=== PATIENT | male | born 1945 | race Caucasian/White ===

== ENCOUNTER 2020-09-24 16:23 | Outpatient (REF) | payer SELFPAY | END 2020-09-24 16:24 | disposition home or self-care (01) | LOC: HO.LAB 16:23 | PROVIDERS: Visit Provider Internal Medicine | DX: Z20.828 Contact with and (suspected) exposure to other viral communicable diseases (principal) | CPT/HCPCS: C9803; U0003 ==

== ENCOUNTER 2024-12-03 11:32 | Inpatient (IN) | payer OTHER, SELFPAY ==
[2024-12-03] VITALS (13 sets, daily range): BP systolic 89–112; BP diastolic 48–82; PULSE 82–122; RESP 16–36; TEMP 36.8–37.4; O2SAT 86–97; BMI 21.8
--- NOTE | ~2024-12-03 | XR_ITS ---
CLINICAL HISTORY: inf A , cough 1 view chest x-ray Comparison: None Findings: The lungs are clear. Heart size is normal. No acute fracture. IMPRESSION: 1. No acute findings. This document has been electronically signed by: Cari Duval MD on 12/03/2024 14:18:59
--- NOTE | 2024-12-03 12:07 | ED.NAVMDI ---
HPI - Nausea/Vomiting/Diarrhea General Chief complaint: Nausea/Vomiting/Diarrhea Stated complaint: WEAK,FEVER,DIARRHEA X4D PER EMS Time Seen by Provider: 12/03/24 11:43 Source: patient Mode of arrival: ambulatory Limitations: no limitations History of Present Illness ED Provider: HPI Narrative: Patient otherwise healthy other family member sick with influenza a with nausea vomiting diarrhea patient comes here for 4 days of nausea vomiting diarrhea unable to eat or drink much at home had low-grade fever with cough and congestion was saturating 91% at room air patient has had multiple episodes of vomiting diarrhea more than 10 times a day no recent travel or use of antibiotics Related Data Home Medications ?Medication ?Instructions ?Recorded ?Confirmed acetaminophen 500 mg tablet 1,000 mg PO Q6H PRN pain 12/03/24 12/03/24 atorvastatin 80 mg tablet 80 mg PO DAILY 12/03/24 12/03/24 clopidogrel 75 mg tablet 75 mg PO DAILY 12/03/24 12/03/24 famotidine 10 mg tablet (Heartburn 10 mg PO DAILY PRN Heartburn 12/03/24 12/03/24 Relief (famotidine)) gabapentin 400 mg capsule 400 mg PO BEDTIME 12/03/24 12/03/24 lorazepam 0.5 mg tablet 0.5 mg PO BID PRN Anxiety 12/03/24 12/03/24 mirtazapine 45 mg tablet 45 mg PO BEDTIME 12/03/24 12/03/24 trazodone 50 mg tablet 50 mg PO DAILY PRN Insomnia 12/03/24 12/03/24 Allergies Allergy/AdvReac Type Severity Reaction Status Date / Time No Known Allergies Allergy Verified 12/03/24 11:57 Review of Systems Review of Systems: Yes all other systems are reviewed and are negative [facility] Past Medical History Medical History Anxiety HLD (hyperlipidemia) Social History Social History Smoked in Last 30 Days: No Use of substances other than those prescribed or required for medical reasons: Yes Substance Use Type: Marijuana Advance Directives: No Advance Directives Information Provided: Yes Do you have a plan to hurt others: No Plan Physical Exam Vital Signs: Vital Signs: Last Vital Signs Temp 99.4 F 12/03/24 19: Pulse 91 12/03/24 19:26 Resp 29 H 12/03/24 19: BP 99/63 12/03/24 19: Pulse Ox 95 12/03/24 19: O2 Del Method Nasal Cannula 12/03/24 19: O2 Flow Rate 2 12/03/24 19:26 BMI result Body Mass Index 21.8 Appearance: Alert. Oriented X3. No acute distress. Eyes: No pallor or icterus ENT: Pharynx normal. Oral Mucosa dry Neck: Normal inspection. Neck supple. CVS: Normal heart rate and rhythm. Pulses normal. Respiratory: No respiratory distress. Equal air entry bilateral, no wheezing/rales/rhonchi Abdomen: Soft and nontender. Bowel sounds are present, no mass palpable, no CVA tenderness Skin: Skin warm and dry. Normal skin color. Normal skin turgor. Extremities: No lower extremity edema. No calf tenderness Neuro: Oriented X 3. No motor deficit. Medications Administered Generic Name Dose Route Start Last Admin Trade Name Freq PRN Reason Stop Dose Admin Benzonatate 100 mg 12/03/24 18:04 12/03/24 18:36 Benzonatate 100 Mg Capsule PO 100 mg TID PRN Administration Cough Lactated Ringer's 1,000 mls @ 100 mls/hr 12/03/24 18:15 12/03/24 18:29 Lr IVCONT 100 mls/hr .Q10H NAYELI Administration Oseltamivir Phosphate 75 mg 12/03/24 18:00 12/03/24 18:29 Oseltamivir Phosphate 75 Mg Capsule PO 12/07/24 18:01 75 mg Q24H NAYELI Administration Discontinued Medications Generic Name Dose Route Start Last Admin Trade Name Freq PRN Reason Stop Dose Admin Albuterol Sulfate 2.5 mg/ 0 mg 12/03/24 16:24 12/03/24 16:32 Albuterol/Ipratropium 3 ml INHALE 12/03/24 16:25 1 dose ONCE ONE Administration Sodium Chloride 1,000 mls @ 999 mls/hr 12/03/24 12:13 12/03/24 13:16 Ns IV 12/03/24 13:13 Infused .Q1H1M ONE Infusion Sodium Chloride 1,000 mls @ 999 mls/hr 12/03/24 13:29 12/03/24 14:42 Ns IV 12/03/24 14:29 Infused .Q1H1M ONE Infusion Loperamide HCl 2 mg 12/03/24 18:04 12/03/24 18:29 Loperamide Hcl 2 Mg Capsule PO 12/03/24 18:05 2 mg ONCE ONE Administration Ondansetron HCl 4 mg 12/03/24 12:13 12/03/24 12:15 Ondansetron Hcl 4 Mg/2 Ml Vial IVPUSH 12/03/24 12:14 4 mg ONCE ONE Administration Medical Decision Making Medical Decision Making [facility] Narrative: Patient's with acute gastroenteritis with influenza a positive treat symptomatically patient is saturating 89% at room air on received IV fluids taking p.o. fluids but still feels short of breath chest x-ray negative received DuoNeb treatment will re-evaluate Patient's desaturating to 87% at room air will admit patient for supportive treatment Differential Diagnosis Differential Diagnoses: The differential diagnosis associated with the presentation includes Pneumonia/viral infection/PE/bronchospasm Admission/Observation Consideration of admission/observation: Escalation of care including admission/observation considered Consult Healthcare Provider Management of the patient was discussed with: Hospitalist Lab Data [facility] Lab Attestation statement: I reviewed the patient's lab results. 12/03/24 12:11 12/03/24 12:11 Labs: Lab Results 12/03/24 Range/Units 12:11 WBC 8.7 (4.8-10.8) X10*3/uL RBC 4.58 L (4.60-5.80) X10*6/uL Hgb 13.7 L (14.0-18.0) g/dl Hct 40.3 L (42.0-52.0) % MCV 88.0 (80.0-98.0) fL MCH 29.9 (27.0-33.0) pg MCHC 34.0 (31.0-36.0) g/dl RDW 14.3 (11.0-16.0) % Plt Count 146 L (160-400) X10*3/uL MPV 10.8 (9.4-12.4) fL Immature Gran % (Auto) 0.3 (0.0-0.4) % Neut % (Auto) 84.4 H (45-73) % Lymph % (Auto) 9.5 L (20-40) % [place] % (Auto) 5.7 (2-11) % Eos % (Auto) 0.0 (0-4) % Baso % (Auto) 0.1 (0-2) % Lymph # (Auto) 0.8 L (1.2-4.9) X10*3/uL [place] # (Auto) 0.5 (0.1-1.2) X10*3/uL Eos # (Auto) 0.0 (0.0-0.4) X10*3/uL Baso # (Auto) 0.0 (0.0-0.2) X10*3/uL Abs Immat Gran (auto) 0.03 (0.00-0.03) X10*3/uL Absolute Neuts (auto) 7.4 (2.0-8.3) x10*3/uL Absolute Nucleated RBC 0.000 (0.0-0.012) X10*3/uL Nucleated RBC % (auto) 0.0 (0.0-0.2) /100WBC Sodium 133 L (135-145) mmol/L Potassium 4.0 (3.3-5.1) mmol/L Chloride 104 (96-108) mmol/L Carbon Dioxide 18 L (22-29) mmol/L Anion Gap 15 (12-20) BUN 25 H (9-16) mg/dL Creatinine 1.31 (0.5-1.4) mg/dL Estim Creat Clear Calc 35.4 Estimated GFR 53 Random Glucose 112 (60-115) mg/dL Calcium 8.9 (8.4-10.2) mg/dL Magnesium 1.9 (1.6-2.6) mg/dL Influenza Type A (PCR) POSITIVE A (Negative) Influenza Type B (PCR) NEGATIVE (Negative) RSV RNA Qual (PCR) NEGATIVE (Negative) SARS-CoV-2 RNA (RT-PCR) NEGATIVE (Negative) Independent Interpretation I performed an independent interpretation of an: Plain X-Ray Interpretation: NAD Radiology Impression Discussion of test interpretation with radiology: I have reviewed the radiologist's reading. Radiologist Impression: [address] [address] XRay Report Signed Patient: Joreg Silva MR#: [id number] : 1945 Acct:[id number] Age/Sex: 78 / M ADM Date: 12/03/24 Loc: HO.ED Attending Dr: Ordering Physician: Primitivo So MD Date of Service: 12/03/24 Procedure(s): XR chest 1V Accession Number(s): [id number] cc: Physician,Unknown ; Primitivo So MD~ CLINICAL HISTORY: inf A , cough 1 view chest x-ray Comparison: None Findings: The lungs are clear. Heart size is normal. No acute fracture. IMPRESSION: 1. No acute findings. This document has been electronically signed by: Cari Duval MD on 12/03/2024 14:18:59 Dictated By: Cari Duval MD Signed By: <Electronically signed by Cari Duval MD in OV> 12/03/24 1420 DD/ 1418 TD/TT: 12/03/24 1418 Fisheries Biologist: Discharge Plan Discharge Clinical Impression: Influenza A, Acute respiratory failure with hypoxia Patient Disposition: Admitted As Inpatient
[2024-12-03 12:14] LABS: MANUAL DIFF FLAG NO
[2024-12-03] MEDS: 0.9 % Sodium Chloride 1,000 ML 999 ML IV ×2 (12:15→13:41)
[2024-12-03] MEDS: ondansetron HCL 4 MG/2 ML VIAL IVPUSH (12:15)
[2024-12-03 12:17] LABS: Basophils Percent Auto 0.1 % (0-2); Hematocrit 40.3 % (42.0-52.0); Hemoglobin 13.7 g/dl (14.0-18.0); Imm Gran Abs Auto 0.03 X10*3/uL (0.00-0.03); Imm Gran Pct Auto 0.3 % (0.0-0.4); Lymphocytes Absolute Auto 0.8 X10*3/uL (1.2-4.9); Lymphocytes Percent Auto 9.5 % (20-40); Mean Corpuscular Hemoglobin 29.9 pg (27.0-33.0); Mean Platelet Volume 10.8 fL (9.4-12.4); Monocytes Absolute Auto 0.5 X10*3/uL (0.1-1.2); Monocytes Percent Auto 5.7 % (2-11); Neutrophils Absolute Auto 7.4 x10*3/uL (2.0-8.3); Neutrophils Percent Auto 84.4 % (45-73); Platelet Count 146 X10*3/uL (160-400); Red Blood Count 4.58 X10*6/uL (4.60-5.80); Red Cell Distribution Width 14.3 % (11.0-16.0); White Blood Count 8.7 X10*3/uL (4.8-10.8)
[2024-12-03 12:38] LABS: Anion Gap 15 (12-20); Blood Urea Nitrogen 25 mg/dL (9-16); Calcium 8.9 mg/dL (8.4-10.2); Carbon Dioxide 18 mmol/L (22-29); Chloride 104 mmol/L (96-108); Creatinine Clr Calc Pharmacy 35.4; Estimated Glomerular Filt Rate 53; Glucose Random 112 mg/dL (60-115); Magnesium 1.9 mg/dL (1.6-2.6); Sodium 133 mmol/L (135-145)
[2024-12-03 13:09] LABS: Influenza A PCR POSITIVE (Negative); Influenza B PCR NEGATIVE (Negative); Resp Syncy Virus RNA Qual PCR NEGATIVE (Negative); SARS COV2 PCR INHOUSE NEGATIVE (Negative)
--- NOTE | 2024-12-03 13:42 | PC.NURSE ---
patient a&ox3, iv inserted, labs drawn, nasal swab obtained,analysis lead applied nsr on monitor , ivf started per order, pt was notably hypotensive and his O2 sat had decreased- 2L NC was applied- provider notified, call king within reach, family at bedside, plan of care ongoing
[2024-12-03] MEDS: Albuterol Sulfate 2.5 MG, Albuterol/Iprat 2.5/0.5MG 3 ML 3 ML INHALE (16:32)
--- NOTE | 2024-12-03 18:07 | PM.IMHP ---
History of Present Illness Date of Service: 12/03/24 Chief Complaint: SOB, diarrhea An 78 years old male with PMH of HLD, Anxiety among others he could not recall presenting to ED with worsening SOB, diarrhea and decrease oral intake. The patient reports for the last 4 days he was started to have cough, difficulties breathing with associated fever, chills and diarrhea. He was unable to tolerate much of PO because he felt sick to his stomach and was having diarrhea after eating. No chest pain, palpitations, sputum production, rash or urinary symptoms. In ED found to be hypoxic and hypotensive. responded well to IV fluids and O2 supplement. Tested positive for Influenza A. CXR negative for any acute changes. Admitted for further management and work up. Review of Systems Review of Systems: reporting fever, chills or weakness No chest pain, palpitation having shortness of breath or coughing No abdominal pain, but had nausea No urinary symptoms No rash or wounds PMFSH Medical History Anxiety HLD (hyperlipidemia) Social History Smoked in Last 30 Days: No Use of substances other than those prescribed or required for medical reasons: Yes Substance Use Type: Marijuana Advance Directives: No Advance Directives Information Provided: Yes Do you have a plan to hurt others: No Plan Meds Allergies Allergy/AdvReac Type Severity Reaction Status Date / Time No Known Allergies Allergy Verified 12/03/24 11:57 Active Medications: Current Medications Gabapentin (Gabapentin 300 Mg Capsule) 300 mg PO BEDTIME NAYELI Loperamide HCl (Loperamide Hcl 2 Mg Capsule) 2 mg PO Q4H PRN PRN Reason: Diarrhea Loperamide HCl (Loperamide Hcl 2 Mg Capsule) 2 mg PO ONCE ONE Stop: 12/03/24 18:05 Lorazepam (Lorazepam 0.5 Mg Tablet) 0.25 mg PO Q8H PRN PRN Reason: anxiety/restlessness Mirtazapine (Mirtazapine 30 Mg Tablet) 30 mg PO BEDTIME NAYELI Oseltamivir Phosphate (Oseltamivir Phosphate 75 Mg Capsule) 75 mg PO Q24H NAYELI Stop: 12/07/24 18:01 Home Medications ?Medication ?Instructions ?Recorded ?Confirmed ?Last Taken ?Type acetaminophen 500 mg tablet 1,000 mg PO Q6H PRN pain 12/03/24 12/03/24 Unknown History atorvastatin 80 mg tablet 80 mg PO DAILY 12/03/24 12/03/24 12/02/24 History clopidogrel 75 mg tablet 75 mg PO DAILY 12/03/24 12/03/24 12/02/24 History famotidine 10 mg tablet (Heartburn 10 mg PO DAILY PRN Heartburn 12/03/24 12/03/24 Unknown History Relief (famotidine)) gabapentin 400 mg capsule 400 mg PO BEDTIME 12/03/24 12/03/24 12/02/24 History lorazepam 0.5 mg tablet 0.5 mg PO BID PRN Anxiety 12/03/24 12/03/24 Unknown History mirtazapine 45 mg tablet 45 mg PO BEDTIME 12/03/24 12/03/24 12/02/24 History trazodone 50 mg tablet 50 mg PO DAILY PRN Insomnia 12/03/24 12/03/24 Unknown History Physical Exam Vital Signs and Narrative: Vital Signs: Last Vital Signs Temp 98.3 F 12/03/24 17:46 Pulse 91 12/03/24 17:46 Resp 18 12/03/24 17:46 BP 107/65 12/03/24 17:46 Pulse Ox 94 12/03/24 17:46 O2 Del Method Nasal Cannula 12/03/24 17:46 O2 Flow Rate 2 12/03/24 17:46 BMI result Body Mass Index 21.8 Const: Other: Constitutional : Awake, interactive, not in distress Neck : Normal inspection, Supple Cardiovascular : RRR, no JVP, no lower extremity edema Respiratory : fair bilateral air entry, no crackles, no wheezes , On O2 supplement Gastrointestinal: soft, lax, Normal bowel sounds, Non tender Skin : Warm, Dry Neurological : Alert & oriented x3, No focal defici Results Labs 12/03/24 12:11 12/03/24 12:11 Labs: Laboratory Results - last 24 hr 12/03/24 12:11 MCV 88.0 MCH 29.9 MCHC 34.0 RDW 14.3 Plt Count 146 L MPV 10.8 Immature Gran % (Auto) 0.3 Neut % (Auto) 84.4 H Lymph % (Auto) 9.5 L [place] % (Auto) 5.7 Eos % (Auto) 0.0 Baso % (Auto) 0.1 Lymph # (Auto) 0.8 L [place] # (Auto) 0.5 Eos # (Auto) 0.0 Baso # (Auto) 0.0 Abs Immat Gran (auto) 0.03 Absolute Neuts (auto) 7.4 Absolute Nucleated RBC 0.000 Nucleated RBC % (auto) 0.0 Anion Gap 15 Estim Creat Clear Calc 35.4 Estimated GFR 53 Random Glucose 112 Calcium 8.9 Magnesium 1.9 Influenza Type A (PCR) POSITIVE A Influenza Type B (PCR) NEGATIVE RSV RNA Qual (PCR) NEGATIVE SARS-CoV-2 RNA (RT-PCR) NEGATIVE Assessment and Plan (1) Viral sepsis: Status: Acute (2) Acute respiratory failure with hypoxia: Status: Acute (3) Influenza A: Status: Acute (4) CKD (chronic kidney disease) stage 3, GFR 30-59 ml/min: Status: Acute (5) Acute hyponatremia: Status: Acute Plan An 78 years old male with PMH of HLD, Anxiety among others he could not recall presenting to ED with worsening SOB, diarrhea and decrease oral intake. Acute hypoxic failure 2/2 Viral sepsis from Influenza A infection CXR no acute findings Start Tamiflu renally adjusted dose PRN Albuterol Wean O2 down as tolerated IVF maintenance Imodium for diarrhea acute mild hyponatremia Na 133, monitor with fluids follow BMP Hx Anxiety restart home medications HLD restart statin DVT PPx Lovenox The patient will likely need 2 overnight hospital stay for hypoxic failure pending weaning off O2 and clinical improvement. Quality Stroke Does the patient have a stroke diagnosis?: No VTE Prior VTE?: No VTE Risk Level:: Medical - moderate - high VTE Device Contraindication: Treatment Not Indicated VTE Drug Contraindication: N/A - Med Ordered
--- NOTE | 2024-12-03 18:14 | PHA.MEDREC ---
Pharmacy Consult ? Medication Reconciliation Pharmacy has completed the medication reconciliation. Spoke to pt's family to confirm meds.
[2024-12-03] MEDS: Lactated Ringers 1,000 ML 100 ML IVCONT (18:29)
[2024-12-03] MEDS: Loperamide HCl 2 MG CAPSULE PO (18:29)
[2024-12-03] MEDS: Oseltamivir Phosphate 75 MG CAPSULE PO (18:29)
[2024-12-03] MEDS: Benzonatate 100 MG CAPSULE PO (18:36)
--- NOTE | 2024-12-03 18:37 | PC.NURSE ---
patient a&ox3, vitals currently stable- pt was placed on 2L NC due to desatting with exertion, IVF started per order, pt medicated for cough per order, electronic device monitor nsr, call king within reach, flu precautions intact, plan of care ongoing
--- NOTE | 2024-12-03 19:28 | PC.NURSE ---
Received report from LANCE Awad. assumed care of pt at 1900. PT resting quietly, not in any acute distress. VSS, 88 sinus rhythm on monitor, fluids running at 100mls hr. Safety precautions in place. call king within reach. Plan of care ongoing
[2024-12-03] MEDS: Enoxaparin Sodium 30 MG/0.3 ML SYRINGE SUBCUT (22:40)
[2024-12-03] MEDS: Gabapentin 300 MG CAPSULE PO (22:40)
--- NOTE | 2024-12-03 22:44 | PC.NURSE ---
pt medicated as per mar, delayed due to providing patient care to other patients. PT denies pain at this time., VSS. 94 Sinus Rhythm. safety precautions in place, call king within reach, plan of care on going
[2024-12-03] MEDS: Mirtazapine 30 MG TABLET PO (23:39)
[2024-12-04] VITALS (10 sets, daily range): BP systolic 94–131; BP diastolic 57–81; PULSE 68–89; RESP 16–18; TEMP 36.3–38.2; O2SAT 92–98
[2024-12-04] MEDS: Lactated Ringers 1,000 ML 100 ML IVCONT ×2 (04:09→13:19)
[2024-12-04 07:05] LABS: Anion Gap 9 (12-20); Blood Urea Nitrogen 15 mg/dL (9-16); Carbon Dioxide 22 mmol/L (22-29); Chloride 109 mmol/L (96-108); Creatinine Clr Calc Pharmacy 54.7; Estimated Glomerular Filt Rate > 60; Glucose Random 87 mg/dL (60-115); Potassium 4.2 mmol/L (3.3-5.1); Sodium 136 mmol/L (135-145)
[2024-12-04] MEDS: Acetaminophen 325 MG TABLET 650 MG PO (08:56)
[2024-12-04] MEDS: Clopidogrel Bisulfate 75 MG TABLET PO (08:56)
[2024-12-04] MEDS: Atorvastatin Calcium 80 MG TABLET PO (08:56)
[2024-12-04] MEDS: predniSONE 20 MG TABLET 40 MG PO (11:32)
--- NOTE | 2024-12-04 13:20 | P.PNIM_ITS ---
Subjective Subjective Date of Service: 12/04/24 Interval History: seen and evaluated still having diarrhea not tolerating much of PO reporting chills and dyspnea no other event Review of Systems Review of Systems: Yes all other systems are reviewed and are negative Physical Exam 2 Vital Signs: Vital Signs: Last Vital Signs Temp 97.3 F 12/04/24 13:19 Pulse 76 12/04/24 13:19 Resp 16 12/04/24 13:19 BP 109/59 L 12/04/24 13:19 Pulse Ox 92 12/04/24 13:19 O2 Del Method Room Air 12/04/24 13:19 O2 Flow Rate 3 12/04/24 03:51 BMI result Body Mass Index 21.8 Const: Other: Constitutional : Awake, interactive, not in distress Neck : Normal inspection, Supple Cardiovascular : RRR, no JVP, no lower extremity edema Respiratory : fair bilateral air entry, no crackles, no wheezes , On O2 supplement Gastrointestinal: soft, lax, Normal bowel sounds, Non tender Skin : Warm, Dry Neurological : Alert & oriented x3, No focal defici Objective Data Active Medications Acetaminophen (Acetaminophen 325 Mg Tablet) 650 mg PO Q6H PRN PRN Reason: Pain, Mild 1-3,fever,headache Last Admin: 12/04/24 08:56 Dose: 650 mg Documented By: MANOHAR Albuterol Sulfate (Albuterol Sulfate (0.083%) 2.5 Mg/3 Ml Vial.Neb) 2.5 mg INHALE Q4H PRN PRN Reason: Shortness of Breath/Wheezing Albuterol/Ipratropium (Albuterol/Iprat 2.5/0.5mg 3 Ml Ampul.Neb) 3 ml INHALE RQ6H WHILE AWAKE [facility] Last Admin: 12/04/24 12:04 Dose: Not Given Documented By: JEOVANY Non-Admin Reason: Patient Asleep Atorvastatin Calcium (Atorvastatin Calcium 80 Mg Tablet) 80 mg PO DAILY [facility] Last Admin: 12/04/24 08:56 Dose: 80 mg Documented By: MANOHAR Benzonatate (Benzonatate 100 Mg Capsule) 100 mg PO TID PRN PRN Reason: Cough Last Admin: 12/03/24 18:36 Dose: 100 mg Documented By: CLAUDE Calcium Carbonate (Calcium Carbonate 750 Mg Tab.Chew) 750 mg PO Q4H PRN PRN Reason: Heartburn Clopidogrel Bisulfate (Clopidogrel Bisulfate 75 Mg Tablet) 75 mg PO DAILY [facility] Last Admin: 12/04/24 08:56 Dose: 75 mg Documented By: MANOHAR Enoxaparin Sodium (Enoxaparin Sodium 40 Mg/0.4 Ml Syringe) 40 mg SUBCUT Q24H [facility] Famotidine (Famotidine 20 Mg Tablet) 10 mg PO DAILY PRN PRN Reason: Heartburn Gabapentin (Gabapentin 300 Mg Capsule) 300 mg PO BEDTIME [facility] Last Admin: 12/03/24 22:40 Dose: 300 mg Documented By: SOURAV Lactated Ringer's (Lr) 1,000 mls @ 100 mls/hr IVCONT .Q10H [facility] Last Admin: 12/04/24 13:19 Dose: 100 mls/hr Documented By: MANOHAR Loperamide HCl (Loperamide Hcl 2 Mg Capsule) 2 mg PO Q4H PRN PRN Reason: Diarrhea Lorazepam (Lorazepam 0.5 Mg Tablet) 0.25 mg PO Q8H PRN PRN Reason: anxiety/restlessness Magnesium Hydroxide (Milk Of Magnesia 30 Ml Oral.Susp) 30 ml PO DAILY PRN PRN Reason: Constipation Melatonin (Melatonin 3 Mg Tablet) 6 mg PO BEDTIME PRN PRN Reason: Insomnia Mirtazapine (Mirtazapine 30 Mg Tablet) 30 mg PO BEDTIME [facility] Last Admin: 12/03/24 23:39 Dose: 30 mg Documented By: SOURAV Ondansetron HCl (Ondansetron Hcl 4 Mg/2 Ml Vial) 4 mg IVPUSH Q8H PRN PRN Reason: Nausea and Vomiting Oseltamivir Phosphate (Oseltamivir Phosphate 75 Mg Capsule) 75 mg PO Q24H [facility] Stop: 12/07/24 18:01 Last Admin: 12/03/24 18:29 Dose: 75 mg Documented By: CLAUDE Prednisone (Prednisone 20 Mg Tablet) 40 mg PO DAILY [facility] Last Admin: 12/04/24 11:32 Dose: 40 mg Documented By: MANOHAR Sodium Chloride (0.9 % Sodium Chloride Flush 3 Ml Syringe) 3 ml IVFLUSH QSHIFT [facility] Last Admin: 12/04/24 08:56 Dose: Not Given Documented By: MANOHAR Non-Admin Reason: IV Running Trazodone HCl (Trazodone Hcl 50 Mg Tablet) 50 mg PO DAILY PRN PRN Reason: Insomnia Labs 12/03/24 12:11 12/04/24 06:22 Labs: Laboratory Results - last 24 hr 12/04/24 06:22 Anion Gap 9 L Estim Creat Clear Calc 54.7 Estimated GFR > 60 Random Glucose 87 Calcium 8.0 L D Assessment and Plan (1) Acute hyponatremia: Status: Acute (2) Influenza A: Status: Acute (3) Viral sepsis: Status: Acute Plan An 78 years old male with PMH of HLD, Anxiety among others he could not recall presenting to ED with worsening SOB, diarrhea and decrease oral intake. Acute hypoxic failure 2/2 Viral sepsis from Influenza A infection CXR no acute findings continue Tamiflu renally adjusted dose (12/03) PRN Albuterol Wean O2 down as tolerated IVF maintenance Imodium for diarrhea acute mild hyponatremia Na 133, monitor with fluids follow BMP Hx Anxiety restart home medications HLD restart statin DVT PPx Lovenox The patient will likely need overnight hospital stay for hypoxic failure pending weaning off O2 and clinical improvement. Quality Stroke Does the patient have a stroke diagnosis?: No VTE Prior VTE?: No VTE Risk Level:: Medical - moderate - high VTE Device Contraindication: Treatment Not Indicated VTE Drug Contraindication: N/A - Med Ordered
--- NOTE | 2024-12-04 15:33 | PC.NURSE ---
trialed ambulation to bathroom wihtout oxygen, patient remained 95% on room air with light exertion
[2024-12-04] MEDS: Albuterol/Iprat 2.5/0.5MG 3 ML AMPUL.NEB INHALE ×2 (15:36→19:40)
[2024-12-04] MEDS: Oseltamivir Phosphate 75 MG CAPSULE PO (17:46)
[2024-12-04] MEDS: Mirtazapine 30 MG TABLET PO (21:35)
[2024-12-04] MEDS: Gabapentin 300 MG CAPSULE PO (21:35)
[2024-12-04] MEDS: Enoxaparin Sodium 40 MG/0.4 ML SYRINGE SUBCUT (21:36)
[2024-12-05] MEDS: Lactated Ringers 1,000 ML 100 ML IVCONT (00:17)
[2024-12-05 04:00] VITALS: BP 105/55; PULSE 85; RESP 18; TEMP 36.2; O2SAT 95
[2024-12-05 07:38] VITALS: BP 145/63; PULSE 77; RESP 16; TEMP 37.7; O2SAT 94
[2024-12-05] MEDS: Albuterol/Iprat 2.5/0.5MG 3 ML AMPUL.NEB INHALE (08:17)
[2024-12-05 08:18] VITALS: PULSE 85; RESP 16; O2SAT 95
[2024-12-05] MEDS: Loperamide HCl 2 MG CAPSULE PO (08:54)
[2024-12-05] MEDS: Clopidogrel Bisulfate 75 MG TABLET PO (08:54)
[2024-12-05] MEDS: Atorvastatin Calcium 80 MG TABLET PO (08:54)
[2024-12-05] MEDS: predniSONE 20 MG TABLET 40 MG PO (08:54)
--- NOTE | 2024-12-05 10:51 | MHC.CM.PN ---
Addendum entered by Gabriela López 12/05/24 12:54: DP: PT HAS BEEN MEDICALLY CLEARED FOR DC HOME, NO SERVICES. DAUGHTER WILL TRANSPORT HOME Original Note: [facility] DELIVERED PT LIVES WITH DAUGHTER AND GRANDCHILD. PT IS FUNCTIONALLY INDEPENDENT. PT'S DAUGHTER IS LIVE IN [facility]. +HCP PCP AT [facility], PT UNABLE TO RECALL NAME
[2024-12-05 12:00] VITALS: BP 126/58; PULSE 82; RESP 16; TEMP 37; O2SAT 92
--- NOTE | 2024-12-05 12:35 | PM.DS ---
DS: Providers Provider Date of Service: 12/05/24 Date of admission: 12/03/24 18:13 Date of discharge: 12/05/24 Primary care physician: Unknown Physician DS: Diagnosis Discharge Diagnosis (1) Acute hyponatremia: Status: Acute (2) Influenza A: Status: Acute (3) Viral sepsis: Status: Acute DS: Summary Hospital Course Hospital Course: Admission note HPI An 78 years old male with PMH of HLD, Anxiety among others he could not recall presenting to ED with worsening SOB, diarrhea and decrease oral intake. The patient reports for the last 4 days he was started to have cough, difficulties breathing with associated fever, chills and diarrhea. He was unable to tolerate much of PO because he felt sick to his stomach and was having diarrhea after eating. No chest pain, palpitations, sputum production, rash or urinary symptoms. In ED found to be hypoxic and hypotensive. responded well to IV fluids and O2 supplement. Tested positive for Influenza A. CXR negative for any acute changes. Admitted for further management and work up. Hospital course The patient was admitted for treatment of Acute hypoxic failure secondary to Viral sepsis from Influenza A infection as CXR no acute findings. he was treated with Tamiflu renally adjusted dose, PRN Albuterol and steroids with fair response as he was Weaned off O2 as tolerated. Imodium for diarrhea with good effect. Noted to have acute mild hyponatremia that corrected back to normal with IVF and increase oral intake. Discharge plan Continue Tamiflu for 3 more days Continue Prednisone for 3 more days Cough medicine as needed Inhaler as needed for wheezing or shortness of breath Time Attestation Discharge Coordination Time (in mins): 36 Quality: Safe Use of Opioids Does Pt have an Active Cancer Diagnosis on the Problem List?: No Quality: Stroke Does the patient have a stroke diagnosis?: No Physical Exam Vital Signs: Vital Signs: Last Vital Signs Temp 98.6 F 12/05/24 12:00 Pulse 82 12/05/24 12:00 Resp 16 12/05/24 12:00 BP 126/58 L 12/05/24 12:00 Pulse Ox 92 12/05/24 12:00 O2 Del Method Room Air 12/05/24 12:00 O2 Flow Rate 3 12/04/24 03:51 BMI result Body Mass Index 21.8 Const: Other: Constitutional : Awake, interactive, not in distress Neck : Normal inspection, Supple Cardiovascular : RRR, no JVP, no lower extremity edema Respiratory : fair bilateral air entry, no crackles, no wheezes Gastrointestinal: soft, lax, Normal bowel sounds, Non tender Skin : Warm, Dry Neurological : Alert & oriented x3, No focal defici Discharge Plan Discharge Anticipated Discharge Date/Time: 12/05/24 12:31 Patient Disposition: Home, Self-Care Discharge Diagnosis: Influenza Referrals: Physician,Unknown J [Primary Care Provider] - 1 Week Discharge Medications: New prednisone 20 mg Tablet 40 mg PO DAILY Qty: 6 0RF benzonatate 100 mg Capsule 100 mg PO TID PRN (Reason: Cough) Qty: 20 0RF oseltamivir [Tamiflu] 75 mg Capsule 75 mg PO Q24H Qty: 3 0RF albuterol sulfate 90 mcg/actuation HFA aerosol inhaler 2 puff inhalation Q6H PRN (Reason: shortness of breath or wheezing) Qty: 6.7 0RF loperamide 2 mg Capsule 2 mg PO Q4H PRN (Reason: Diarrhea) Qty: 20 0RF Continued atorvastatin 80 mg tablet 80 mg PO DAILY famotidine [Heartburn Relief (famotidine)] 10 mg tablet 10 mg PO DAILY PRN (Reason: Heartburn) trazodone 50 mg tablet 50 mg PO DAILY PRN (Reason: Insomnia) gabapentin 400 mg capsule 400 mg PO BEDTIME clopidogrel 75 mg tablet 75 mg PO DAILY acetaminophen 500 mg tablet 1,000 mg PO Q6H PRN (Reason: pain) lorazepam 0.5 mg tablet 0.5 mg PO BID PRN (Reason: Anxiety) mirtazapine 45 mg tablet 45 mg PO BEDTIME Discharge Orders: Discharge Order (Routine); Ordered 12/05/24 Ordered By: Abdoul Kaur Diet: Advance to usual diet Activity on Discharge: As tolerated Stand Alone Forms: Patient Portal Discharge page Print Language: Hong [place]er Care Plan Goals: Continue Tamiflu for 3 more days Continue Prednisone for 3 more days Cough medicine as needed Inhaler as needed for wheezing or shortness of breath Imodium as needed for diarrhea. Health Concerns: Influenza Plan of Treatment: Tamiflu Assessment: as above
--- NOTE | 2024-12-05 14:23 | P.CDIM_ITS ---
PROVIDER RESPONSE TEXT: To clarify, the appropriate diagnosis supported by the clinical indicators: Acute hypoxic respiratory failure: resolved QUERY TEXT: PHYSICIAN'S DOCUMENTATION REQUEST Date of Query: 12/05/2024 09:40 AM EST Patient Name: Jorge Silva Admit Date: 12/03/2024 Dear Abdoul Kaur MD, A review of the medical record indicates additional documentation may be needed. Please review below and update the documentation accordingly. Clinical Indicators: H&P dated 12/03 - Assessment and Plan list: Acute respiratory failure with hypoxia: Progress note within the written Plan 12/04 - Acute hypoxic failure 2/2 Viral sepsis from Influenza A infection. Wean down O2 as tolerated. The patient will likely need overnight hospital stay for hypoxic failure pending weaning off O2 and c linical improvement. RR 25/36 Pulse ox 86/84 2 liters NC. If possible, clarity of a diagnosis documented within the medical record: Acute hypoxic respiratory failure possible, resolved, suspected etc. Hypoxemia Other (explain) Clinically unable to determine (explain) Thank you, Julissa Francisco, CCS, CDIS Use of terms such as suspected, likely, concern for, or probable (associated with a specific diagnosi s that is being evaluated, monitored, or treated as if it exists) are acceptable and can be coded in the inpatient se tting, when documented at the time of discharge. Please use your independent medical judgment in providing your response. THIS QUERY IS PART OF THE PERMANENT MEDICAL RECORD
== END 2024-12-05 13:09 | disposition home or self-care (01) | DRG 871 ==
LOC: HO.ED 13:37 → HO.EDOVER 18:09 → HO.S3 23:45
PROVIDERS: Admitting Provider Student in an Organized Health Care Education/Training Program; Emergency Provider Internal Medicine; Visit Provider Student in an Organized Health Care Education/Training Program
DX: A41.89 Other specified sepsis (principal); J96.01 Acute respiratory failure with hypoxia; E87.0 Hyperosmolality and hypernatremia; J10.1 Influenza due to other identified influenza virus with other respiratory manifestations; F14.19 Cocaine abuse with unspecified cocaine-induced disorder; E78.5 Hyperlipidemia, unspecified; Z79.02 Long term (current) use of antithrombotics/antiplatelets; Z79.899 Other long term (current) drug therapy
CPT/HCPCS: 0241U; 36415; 71045; 80048; 83735; 85025; 94640; 97161; 99285; J1650; J2405; J7120

== ENCOUNTER → 2024-12-03 13:35 | Outpatient (BNV) | payer OTHER, SELFPAY | PROVIDERS: Emergency Provider Internal Medicine; Visit Provider Radiology Diagnostic Radiology | DX: J10.1 Influenza due to other identified influenza virus with other respiratory manifestations (principal) | CPT/HCPCS: 71045 ==

== ENCOUNTER → 2024-12-03 18:13 | Outpatient (BNV) | payer OTHER, SELFPAY | PROVIDERS: Admitting Provider Student in an Organized Health Care Education/Training Program; Emergency Provider Internal Medicine; Visit Provider Student in an Organized Health Care Education/Training Program | DX: E87.1 Hypo-osmolality and hyponatremia (principal); J10.1 Influenza due to other identified influenza virus with other respiratory manifestations; A41.89 Other specified sepsis; B97.89 Other viral agents as the cause of diseases classified elsewhere | CPT/HCPCS: 99232; 99239 ==